=== PATIENT | male | born 1990 | race Caucasian/White ===

== ENCOUNTER 2022-06-20 07:09 | Day surgery (SDC) | payer OTHER ==
[2022-06-20 07:59] VITALS: BMI 23.6
[2022-06-20] MEDS ORDERED: KETAMINE HCL 500 MG/10 ML VIAL ONE (09:53)
[2022-06-20 10:38] VITALS: TEMP 98.6
[2022-06-20 11:37] VITALS: BP 122/72; PULSE 84; RESP 8
== END 2022-06-20 11:30 | disposition home or self-care (01) ==
LOC: FECT 07:09
PROVIDERS: ATTEND Psychiatry & Neurology Psychiatry
PROC: GZB4ZZZ Other Electroconvulsive Therapy (ICD-10-PCS; principal; 2022-06-20 10:03)
DX: F32.9 Major depressive disorder, single episode, unspecified (principal)
CPT/HCPCS: 90870; 93005; 94760; C9803-CS; U0003; U0005

== ENCOUNTER 2022-06-22 06:05 | Day surgery (SDC) | payer OTHER ==
[2022-06-20 08:11] VITALS: BMI 23.6
[2022-06-22 12:39] VITALS: BP 112/54; PULSE 77; RESP 16; TEMP 98.1
== END 2022-06-22 09:40 | disposition home or self-care (01) ==
LOC: FECT 06:05
PROVIDERS: ATTEND Psychiatry & Neurology Psychiatry
PROC: GZB4ZZZ Other Electroconvulsive Therapy (ICD-10-PCS; principal; 2022-06-22 08:32)
DX: F32.A Depression, unspecified (principal)
CPT/HCPCS: 90870; 94760

== ENCOUNTER 2022-06-23 06:03 | Day surgery (SDC) | payer OTHER ==
[2022-06-20 08:31] VITALS: BMI 23.6
[2022-06-23 08:40] VITALS: RESP 16; TEMP 98
[2022-06-23 09:01] VITALS: BP 116/68; PULSE 64
== END 2022-06-23 09:13 | disposition home or self-care (01) ==
LOC: FECT 06:03
PROVIDERS: ATTEND Psychiatry & Neurology Psychiatry
PROC: GZB4ZZZ Other Electroconvulsive Therapy (ICD-10-PCS; principal; 2022-06-23 07:42)
DX: F32.A Depression, unspecified (principal)
CPT/HCPCS: 90870; 94760; C9803-CS; U0003; U0005

== ENCOUNTER 2022-06-27 05:59 | Day surgery (SDC) | payer OTHER ==
[2022-06-20 08:36] VITALS: BMI 23.6
[2022-06-27] MEDS ORDERED: KETAMINE HCL 500 MG/10 ML VIAL ONE (07:25)
[2022-06-27 08:23] VITALS: PULSE 69; RESP 18; TEMP 98.2
[2022-06-27 08:56] VITALS: BP 122/75
== END 2022-06-27 08:50 | disposition home or self-care (01) ==
LOC: FECT 05:59
PROVIDERS: ATTEND Psychiatry & Neurology Psychiatry
PROC: GZB4ZZZ Other Electroconvulsive Therapy (ICD-10-PCS; principal; 2022-06-27 07:37)
DX: F32.A Depression, unspecified (principal)
CPT/HCPCS: 90870; 94760; C9803-CS; U0003; U0005

== ENCOUNTER 2022-06-30 06:25 | Day surgery (SDC) | payer OTHER ==
[2022-06-27 08:42] VITALS: BMI 23.6
[2022-06-30 09:36] VITALS: RESP 18; TEMP 97.7
[2022-06-30 09:45] VITALS: BP 121/77; PULSE 74
== END 2022-06-30 09:50 | disposition home or self-care (01) ==
LOC: FECT 06:25
PROVIDERS: ATTEND Psychiatry & Neurology Psychiatry
PROC: GZB4ZZZ Other Electroconvulsive Therapy (ICD-10-PCS; principal; 2022-06-30 08:38)
DX: F32.A Depression, unspecified (principal)
CPT/HCPCS: 90870; 94760; C9803-CS; U0003; U0005

== ENCOUNTER → 2022-07-04 | Day surgery (SDC) | payer OTHER ==
[2022-06-30 15:35] VITALS: BMI 23.6
[~2022-07-04] MED LIST: KETAMINE HCL 500 MG/10 ML VIAL ONE
[2022-07-04 11:30] VITALS: RESP 18; TEMP 98
[2022-07-04 11:49] VITALS: BP 124/62; PULSE 73
== END | disposition home or self-care (01) ==
LOC: FECT 08:15
PROVIDERS: ATTEND Psychiatry & Neurology Psychiatry
PROC: GZB4ZZZ Other Electroconvulsive Therapy (ICD-10-PCS; principal; 2022-07-04 10:18)
DX: F32.A Depression, unspecified (principal)
CPT/HCPCS: 90870; 94760; C9803-CS; U0003; U0005

== ENCOUNTER 2022-07-06 05:58 | Day surgery (SDC) | payer OTHER ==
[2022-07-03 07:51] VITALS: BMI 23.6
[2022-07-06] MEDS ORDERED: KETAMINE HCL 500 MG/10 ML VIAL ONE (07:29)
[2022-07-06 08:57] VITALS: RESP 18; TEMP 98
[2022-07-06 09:12] VITALS: BP 122/77; PULSE 68
== END 2022-07-06 09:15 | disposition home or self-care (01) ==
LOC: FECT 05:58
PROVIDERS: ATTEND Psychiatry & Neurology Psychiatry
PROC: GZB4ZZZ Other Electroconvulsive Therapy (ICD-10-PCS; principal; 2022-07-06 08:11)
DX: F32.A Depression, unspecified (principal)
CPT/HCPCS: 90870; 94760

== ENCOUNTER 2022-07-07 08:10 | Day surgery (SDC) | payer OTHER ==
[2022-07-03 07:56] VITALS: BMI 23.6
[2022-07-07] MEDS ORDERED: KETAMINE HCL 500 MG/10 ML VIAL ONE (09:03)
[2022-07-07 10:15] VITALS: PULSE 66; RESP 20; TEMP 98.2
[2022-07-07 10:55] VITALS: BP 116/72
== END 2022-07-07 10:25 | disposition home or self-care (01) ==
LOC: FECT 08:10
PROVIDERS: ATTEND Psychiatry & Neurology Psychiatry
PROC: GZB4ZZZ Other Electroconvulsive Therapy (ICD-10-PCS; principal; 2022-07-07 09:15)
DX: F33.2 Major depressive disorder, recurrent severe without psychotic features (principal)
CPT/HCPCS: 90870; 94760; C9803-CS; U0003; U0005

== ENCOUNTER 2022-07-11 06:00 | Day surgery (SDC) | payer OTHER ==
[2022-07-06 14:32] VITALS: BMI 23.6
[2022-07-11] MEDS ORDERED: KETAMINE HCL 500 MG/10 ML VIAL ONE (08:42)
[2022-07-11 09:45] VITALS: RESP 18; TEMP 98.9
[2022-07-11 10:08] VITALS: BP 121/78; PULSE 89
[2022-07-11] MEDS ORDERED: PROMETHAZINE HCL 25 MG/1 ML VIAL IVPUSH PRN (10:27)
[2022-07-11] MEDS ORDERED: ACETAMINOPHEN 325 MG TABLET (FP) PO PRN (10:27)
[2022-07-11] MEDS ORDERED: LACTATED RINGERS SOLUTION 1,000 ML IV SCH (10:30)
== END 2022-07-11 10:05 | disposition home or self-care (01) ==
LOC: FECT 06:00
PROVIDERS: ATTEND Psychiatry & Neurology Psychiatry
PROC: GZB4ZZZ Other Electroconvulsive Therapy (ICD-10-PCS; principal; 2022-07-11 08:55)
DX: F32.A Depression, unspecified (principal)
CPT/HCPCS: 90870; 94760; C9803-CS; U0003; U0005

== ENCOUNTER 2022-07-18 05:53 | Day surgery (SDC) | payer OTHER ==
[2022-07-11 16:51] VITALS: BMI 23.6
[2022-07-18] MEDS ORDERED: SUCCINYLCHOLINE CHLORIDE 200 MG/10 ML SYRINGE ONE (08:18)
[2022-07-18] MEDS ORDERED: LACTATED RINGERS SOLUTION 1,000 ML IV SCH (09:30)
[2022-07-18 09:55] VITALS: RESP 18; TEMP 98.2
[2022-07-18 10:16] VITALS: BP 122/73; PULSE 82
== END 2022-07-18 10:17 | disposition home or self-care (01) ==
LOC: FECT 05:53
PROVIDERS: ATTEND Psychiatry & Neurology Psychiatry
PROC: GZB4ZZZ Other Electroconvulsive Therapy (ICD-10-PCS; principal; 2022-07-18 08:24)
DX: F32.A Depression, unspecified (principal)
CPT/HCPCS: 90870; 94760; C9803-CS; U0003; U0005

== ENCOUNTER 2022-07-20 06:51 | Day surgery (SDC) | payer OTHER ==
[2022-07-17 18:05] VITALS: BMI 23.6
[2022-07-20] MEDS ORDERED: KETAMINE HCL 500 MG/10 ML VIAL ONE (09:11)
[2022-07-20 10:03] VITALS: TEMP 98.8
[2022-07-20 12:24] VITALS: BP 128/75; PULSE 77; RESP 18
== END 2022-07-20 11:50 | disposition home or self-care (01) ==
LOC: FECT 06:51
PROVIDERS: ATTEND Psychiatry & Neurology Psychiatry
PROC: GZB4ZZZ Other Electroconvulsive Therapy (ICD-10-PCS; principal; 2022-07-20 09:35)
DX: F32.A Depression, unspecified (principal)
CPT/HCPCS: 90870; 94760

== ENCOUNTER 2022-07-27 06:10 | Day surgery (SDC) | payer OTHER ==
[2022-07-24 07:48] VITALS: BMI 23.6
[2022-07-27] MEDS ORDERED: KETAMINE HCL 200 MG/20 ML VIAL ONE (07:36)
[2022-07-27 08:56] VITALS: RESP 16; TEMP 98.4
[2022-07-27 09:09] VITALS: BP 131/68; PULSE 76
== END 2022-07-27 09:20 | disposition home or self-care (01) ==
LOC: FECT 06:10
PROVIDERS: ATTEND Psychiatry & Neurology Psychiatry
PROC: GZB4ZZZ Other Electroconvulsive Therapy (ICD-10-PCS; principal; 2022-07-27 07:44)
DX: F32.A Depression, unspecified (principal)
CPT/HCPCS: 90870; 94760

== ENCOUNTER 2022-08-10 06:07 | Day surgery (SDC) | payer OTHER ==
[2022-07-24 08:07] VITALS: BMI 23.6
[2022-08-10] MEDS ORDERED: KETAMINE HCL 500 MG/10 ML VIAL ONE (08:11)
[2022-08-10 08:49] VITALS: RESP 18
[2022-08-10 09:07] VITALS: TEMP 97.6
[2022-08-10 09:32] VITALS: BP 118/60; PULSE 67
== END 2022-08-10 09:29 | disposition home or self-care (01) ==
LOC: FECT 06:07
PROVIDERS: ATTEND Psychiatry & Neurology Psychiatry
PROC: GZB4ZZZ Other Electroconvulsive Therapy (ICD-10-PCS; principal; 2022-08-10 08:24)
DX: F32.A Depression, unspecified (principal)
CPT/HCPCS: 90870; 94760

== ENCOUNTER 2022-08-11 06:58 | Day surgery (SDC) | payer OTHER ==
[2022-07-10 15:46] VITALS: BMI 23.6
[2022-08-11] MEDS ORDERED: KETAMINE HCL 500 MG/10 ML VIAL ONE (09:09)
[2022-08-11 10:00] VITALS: RESP 18
[2022-08-11 10:10] VITALS: TEMP 98.7
[2022-08-11 10:23] VITALS: BP 126/70; PULSE 80
== END 2022-08-11 10:33 | disposition home or self-care (01) ==
LOC: FECT 06:58
PROVIDERS: ATTEND Psychiatry & Neurology Psychiatry
PROC: GZB4ZZZ Other Electroconvulsive Therapy (ICD-10-PCS; principal; 2022-08-11 09:00)
DX: F32.A Depression, unspecified (principal)
CPT/HCPCS: 90870; 94760

== ENCOUNTER 2022-08-15 06:02 | Day surgery (SDC) | payer OTHER ==
[2022-08-02 18:06] VITALS: BMI 23.6
[2022-08-15] MEDS ORDERED: KETAMINE HCL 500 MG/10 ML VIAL ONE (07:18)
[2022-08-15 08:45] VITALS: BP 125/77; PULSE 77; RESP 18; TEMP 98.4
== END 2022-08-15 08:50 | disposition home or self-care (01) ==
LOC: FECT 06:02
PROVIDERS: ATTEND Psychiatry & Neurology Psychiatry
PROC: GZB4ZZZ Other Electroconvulsive Therapy (ICD-10-PCS; principal; 2022-08-15 07:35)
DX: F32.A Depression, unspecified (principal)
CPT/HCPCS: 90870; 94760